=== PATIENT | female | born 1990 | race Caucasian/White ===

== ENCOUNTER 2016-12-12 22:37 | Emergency (ER) | payer OTHER ==
[~2016-12-12] VITALS: Ht 162.5 cm; Wt 104.3 kg
[~2016-12-12 22:37] MED LIST: BACTRIM DS 8001 TA1 PO; CLINDAMYCIN150 MG PO; CYCLOBENZAPRINE10 MG PO; IBU800 MG PO; MACROBID100 M1 PO; NKHM; PENICILLIN VK500 MG PO; PERCOCET 325 MG1 TA2 PO; PRENATAL1 TA2 PO; TRAMADOL HCL50 MG PO; ZOFRAN ODT4 MG SL
[2016-12-12] MEDS ORDERED: CLINDAMYCIN HC300 MG PO (22:52)
[2016-12-12] MEDS ORDERED: CYCLOBENZAPRINE5 M3 PO (23:54)
[2016-12-12] MEDS ORDERED: NAPROSYN500 MG PO (23:54)
== END 2016-12-13 00:11 | disposition home or self-care (01) ==
LOC: ED 22:37
DX: M54.16 Radiculopathy, lumbar region (principal); F17.200 Nicotine dependence, unspecified, uncomplicated; Z90.49 Acquired absence of other specified parts of digestive tract; Z79.899 Other long term (current) drug therapy

== ENCOUNTER 2018-11-20 01:36 | Emergency (ER) | payer OTHER ==
[~2018-11-20] VITALS: Ht 162.5 cm; Wt 104.3 kg
[~2018-11-20 01:36] MED LIST changes: +CLINDAMYCIN HC300 MG PO; +CYCLOBENZAPRINE5 M3 PO; +NAPROSYN500 MG PO; +PREDNISONE20 M1 PO; +ROBAXIN500 M1 PO
[2018-11-20] MEDS ORDERED: AMOXICILLIN500 M2 PO (02:40)
== END 2018-11-20 03:02 | disposition home or self-care (01) ==
LOC: ED 01:36
DX: J03.90 Acute tonsillitis, unspecified (principal)

== ENCOUNTER 2019-07-25 19:53 | Emergency (ER) | payer OTHER ==
[~2019-07-25] VITALS: Ht 162.5 cm; Wt 104.3 kg
[~2019-07-25 19:53] MED LIST changes: +AMOXICILLIN500 M2 PO
[2019-07-26] MEDS ORDERED: ZOFRAN4 MG PO (02:25)
== END 2019-07-26 03:03 | disposition home or self-care (01) ==
LOC: ED 19:53
DX: R11.2 Nausea with vomiting, unspecified (principal); R19.7 Diarrhea, unspecified; F17.200 Nicotine dependence, unspecified, uncomplicated

== ENCOUNTER 2019-10-13 17:03 | Emergency (ER) | payer OTHER ==
[~2019-10-13] VITALS: Ht 162.5 cm; Wt 104.3 kg
[~2019-10-13 17:03] MED LIST changes: +ZOFRAN4 MG PO
[2019-10-13 19:06] LABS: BILIRUBIN NEGATIVE (NEGATIVE); BLOOD TRACE-LYSED (NEGATIVE); CLARITY SL CLOUDY (CLEAR); COLOR YELLOW (YELLOW); GLUCOSE NEGATIVE (NEGATIVE); KETONE NEGATIVE (NEGATIVE); LEUKO ESTERASE NEGATIVE (NEGATIVE); MUCOUS TRACE; NITRITE NEGATIVE (NEGATIVE); UROBILINOGEN 0.2 E.U./dl (0.2-1.0)
[2019-10-13] MEDS ORDERED: ZOFRAN4 MG PO (19:09)
== END 2019-10-13 19:21 | disposition home or self-care (01) ==
LOC: ED 17:03
PROVIDERS: Physician Assistant
DX: R11.2 Nausea with vomiting, unspecified (principal); R19.7 Diarrhea, unspecified; K21.9 Gastro-esophageal reflux disease without esophagitis; Z79.899 Other long term (current) drug therapy

== ENCOUNTER → 2020-04-17 | Outpatient (CLI) | payer OTHER | END | disposition home or self-care (01) | LOC: COVID19 09:55 | PROVIDERS: ATTEND Family Medicine | DX: Z20.828 Contact with and (suspected) exposure to other viral communicable diseases (principal) ==

== ENCOUNTER → 2020-10-02 | Outpatient (CLI) | payer OTHER | END | disposition home or self-care (01) | LOC: COVID19 10:31 | PROVIDERS: ATTEND Family Medicine | DX: Z20.822 Contact with and (suspected) exposure to COVID-19 (principal) ==

== ENCOUNTER → 2020-11-18 | Outpatient (CLI) | payer OTHER ==
[2020-11-18 11:46] LABS: HEMATOCRIT 42.1 % (37.0-47.0); MEAN CORPUSCULAR HGB 30.8 pg (27.0-31.0); MEAN CORPUSCULAR HGB CONC 34.2 g/dl (33.0-37.0); MEAN PLATELET VOLUME 10.1 fl (9.6-12.3); RED BLOOD COUNT 4.68 10*6/uL (4.10-5.10); RED CELL DISTRI WIDTH 12.5 % (0-14.5); WHITE BLOOD COUNT 8.7 10*3/uL (4.8-10.8)
[2020-11-18 12:03] LABS: ALBUMIN 3.1 gm/dl (3.1-4.5); ALKALINE PHOSPHATASE 85 U/L (45-117); BUN 16 mg/dl (7-24); CHLORIDE 110 mmol/L (98-107); CHOLESTEROL 179 mg/dL (<200); CREATININE 0.69 mg/dL (0.55-1.02); LDL CHOLESTEROL 111 mg/dL (9-159); POTASSIUM 3.7 mmol/L (3.5-5.1); SGOT/AST 14 IU/L (3-35); SGPT/ALT 22 U/L (12-78); SODIUM 138 mmol/L (136-145); TOTAL PROTEIN 7.1 gm/dL (6.4-8.2); TRIGLYCERIDES 173 mg/dl (<150)
[2020-11-19 09:06] LABS: HEP B CORE AB, IGM Negative (Negative); HEPATITIS B SURFACE AG Negative (Negative); HEPATITIS C VIRUS ANTIBODY <0.1 s/co (0.0-0.9)
== END | disposition home or self-care (01) ==
LOC: LAB 11:19
PROVIDERS: ATTEND Nurse Practitioner Family
DX: Z13.220 Encounter for screening for lipoid disorders (principal); R53.83 Other fatigue; Z20.5 Contact with and (suspected) exposure to viral hepatitis; Z72.51 High risk heterosexual behavior

== ENCOUNTER 2021-02-03 17:46 | Emergency (ER) | payer OTHER ==
[~2021-02-03] VITALS: Ht 162.6 cm; Wt 112.5 kg
[2021-02-03 18:27] LABS: BASO % 0.2 % (0.0-1.0); EOS # 0.1 10*3/uL (0.0-0.4); EOS % 0.9 % (1.0-4.0); HEMATOCRIT 39.6 % (37.0-47.0); MEAN CELL VOLUME 89.4 fl (81.0-99.0); MEAN CORPUSCULAR HGB 30.5 pg (27.0-31.0); MEAN CORPUSCULAR HGB CONC 34.1 g/dl (33.0-37.0); MONO # 0.8 10*3/uL (0.1-1.0); MONO % 6.9 % (3.0-9.0); NEUT # 10.2 10*3/uL (2.3-7.9); NEUT % 83.5 % (47.0-73.0); PLATELET COUNT AUTOMATED 214 10*3/uL (130-400); RED BLOOD COUNT 4.43 10*6/uL (4.10-5.10); RED CELL DISTRI WIDTH 12.6 % (0-14.5); WHITE BLOOD COUNT 12.2 10*3/uL (4.8-10.8)
[2021-02-03 18:42] LABS: ALBUMIN 3.1 gm/dl (3.1-4.5); ALKALINE PHOSPHATASE 89 U/L (45-117); BUN 11 mg/dl (7-24); CHLORIDE 109 mmol/L (98-107); CPK 76 U/L (26-192); CREATININE 0.71 mg/dL (0.55-1.02); POTASSIUM 3.7 mmol/L (3.5-5.1); SGOT/AST 20 IU/L (3-35); SGPT/ALT 29 U/L (12-78); SODIUM 136 mmol/L (136-145)
[2021-02-03 18:45] LABS: B-hCG (QUALITATIVE) NEGATIVE (NEGATIVE)
[2021-02-03 19:23] LABS: BILIRUBIN Negative (Negative); BLOOD Trace-Lysed (Negative); CLARITY Cloudy (Clear); COLOR Yellow (Yellow); GLUCOSE Negative (Negative); KETONE Trace (Negative); LEUKO ESTERASE Negative (Negative); NITRITE Negative (Negative); SPECIFIC GRAVITY 1.025 (1.001-1.030)
[2021-02-03 19:45] LABS: BACTERIA 2+; RBC 0-2 rbc/hpf (0-2)
== END 2021-02-03 20:03 | disposition home or self-care (01) ==
LOC: ED 17:46
PROVIDERS: Emergency Medicine
DX: B34.9 Viral infection, unspecified (principal)

== ENCOUNTER → 2021-10-26 | Outpatient (CLI) | payer OTHER | END | disposition home or self-care (01) | LOC: US 14:29 | PROVIDERS: ATTEND Family Medicine | DX: N83.201 Unspecified ovarian cyst, right side (principal) ==

== ENCOUNTER → 2021-11-14 | Outpatient (CLI) | payer OTHER | END | disposition home or self-care (01) | LOC: CT 11-12 15:00 | PROVIDERS: ATTEND Family Medicine | DX: K86.89 Other specified diseases of pancreas (principal); M53.3 Sacrococcygeal disorders, not elsewhere classified; K42.9 Umbilical hernia without obstruction or gangrene ==